=== PATIENT | female | born 1935 | race Caucasian/White ===

== ENCOUNTER 2017-03-27 17:46 | Inpatient (IN) | payer OTHER ==
--- NOTE | 2017-03-27 17:55 | EDPHY ---
H & P Time Seen by Provider: 03/27/17 17:52 HPI/ROS: CHIEF COMPLAINT: HISTORY OF PRESENT ILLNESS: This 81-year-old woman fell on March 04 of this year and fractured her right hip and had surgery to repair it in [place]. The patient then was found to have fallen on March 24 and went to the emergency department on March 25. There she had a hip dislocation reduced but was found to have an additional fracture in her fibula as well as around her hip prosthesis. The patient was transported by fixed wing aircraft with her daughter to [facility], and was accepted today by the hospitalist medicine service. She presents the emergency department with right hip pain. Further history is not obtainable because of the patient's dementia. History is obtainable from the daughter. REVIEW OF SYSTEMS: Patient complains of pain in the right hip. When I asked her what her name is she says "I am not talking to you." In further history and review of systems is not possible because the patient's lack of cooperation. It is probably also in part because of her dementia. The daughter says her mental status is at baseline and she has not had any other medical complaints lately. PAST MEDICAL HISTORY: Includes right hip fracture, glaucoma, dementia, anemia. Social history: Lives in [place], daughter lives in [place]. Nonsmoker. General Appearance: Patient is alert and eyes open spontaneously. She will respond as noted above to questions. Eyes: No scleral icterus. ENT, Mouth: Slightly dry mucous membranes. Respiratory: Normal respiratory effort, breath sounds equal, lungs are clear to auscultation. Cardiovascular: Regular rate and rhythm. Heart rate 100. Gastrointestinal: Abdomen is soft and non tender. Neurological: Alert, does follow commands, responds to questions as noted above. Speech is fluent. Face symmetric, she does have spontaneous movement in both lower extremities. Skin: Warm and dry, no rashes. Musculoskeletal: Right leg is in an abduction pillow. She has palpable dorsalis pedis pulses bilaterally. She will move both feet. Psychiatric: Not agitated. Emergency Department course/MDM: Plan for screening labs to include CBC chemistry and coags, EKG, x-ray of the right hip and lower extremity. Pain medication administered in the emergency department, see medication record for details. Discussed with Dr. Hearn who will admit, Orthopedics to consult. Discussed with Master at 1936. 1944: CT right hip per Dr. Jose Guadalupe serrato showed nondisplaced fracture near the stem of the prosthesis in the body of the femur. Constitutional: Initial Vital Signs Temperature (C) 37.3 C 03/27/17 18:10 Heart Rate 90 03/27/17 18:10 Respiratory Rate 14 03/27/17 18:10 Blood Pressure 114/61 03/27/17 18:10 O2 Sat (%) 89 L 03/27/17 18:10 O2 Delivery Mode Room Air O2 (L/minute) 4 Allergies/Adverse Reactions: No Known Allergies Allergy (Unverified 03/27/17 18:07) Home Medications: Medication Instructions Recorded Ascorbic Acid [Vitamin C 500 mg 500 mg PO BID 03/27/17 (*)] Bimatoprost [Lumigan] 1 drop EACHEYE HS 03/27/17 Brimonidine Tartrate [Alphagan P] 1 drop EACHEYE BID 03/27/17 Docusate Sodium [Colace 100 MG (*)] 100 mg PO BID 03/27/17 Dorzolamide/Timolol [Cosopt (*)] 1 drops EACHEYE BID 03/27/17 Enoxaparin [Lovenox 40 MG (*)] 40 mg SQ DAILY 03/27/17 Folic Acid [Folic Acid 1 MG (*)] 1 mg PO DAILY 03/27/17 Multivitamins [Multivitamin (*)] 1 each PO DAILY 03/27/17 Pilocarpine 1% [Isopto Carpine 1% 1 drop LEFTEYE BID 03/27/17 (*)] Quetiapine Fumarate [Quetiapine 25 mg PO BID 03/27/17 Fumarate] Urea Cream 20% Cream 1 applic TP DAILY 03/27/17 busPIRone [Buspar (*)] 5 mg PO Q12H 03/27/17 oxyCODONE HCL/ACETAMINOPHEN 1 - 2 tab PO Q6H PRN 03/27/17 [Oxycodone-Acetaminophen 5-325] Medical Decision Making - Diagnostics EKG Interpretation: 12-lead EKG interpreted by me; official reading is in trace master. My interpretation is a sinus rhythm with low frontal lead voltage. Imaging Results: Imaging Impressions Hip X-Ray 03/27/17 17:56 Impression: Right hip arthroplasty. No fracture identified. Tibia/Fibula X-Ray 03/27/17 17:56 Impression: Technically limited exam. No fracture identified. Extremity CT 03/27/17 18:57 Impression: Nondisplaced fracture lines coursing through the proximal right femur as the femoral component of the prosthesis enters the medullary space. Adjacent right hip and proximal thigh hemorrhage. No acetabular fracture identified. Results called to Dr. Arreaga. Imaging: I viewed and interpreted images myself Differential Diagnosis: Differential for right hip pain considered including but not limited to hip dislocation, periprosthetic fracture, septic joint, contusion. - Data Points Laboratory Results: Laboratory Results 03/27/17 18:01 03/27/17 18:01 03/27/17 03/27/17 03/27/17 18:11 18:01 18:01 WBC RBC Hgb Hct MCV MCH MCHC RDW Plt Count MPV Neut % (Auto) Lymph % (Auto) Greenlee % (Auto) Eos % (Auto) Baso % (Auto) Nucleat RBC Rel Count Absolute Neuts (auto) Absolute Lymphs (auto) Absolute Monos (auto) Absolute Eos (auto) Absolute Basos (auto) Absolute Nucleated RBC Immature Gran % Immature Gran # PT 14.8 SEC SEC (12.0-15.0) INR 1.16 (0.83-1.16) APTT 34.9 SEC SEC (23.0-38.0) Sodium 140 mEq/L mEq/L (134-144) Potassium 4.2 mEq/L mEq/L (3.5-5.2) Chloride 105 mEq/L mEq/L (97-110) Carbon Dioxide 26 mEq/l mEq/l (22-31) Anion Gap 9 mEq/L mEq/L (8-16) BUN 19 mg/dL mg/dL (7-23) Creatinine 0.7 mg/dL mg/dL (0.6-1.0) Estimated GFR > 60 Glucose 94 mg/dL mg/dL (70-100) Calcium 8.6 mg/dL mg/dL (8.5-10.4) Patient ABO/Rh A POSITIVE Antibody Screen NEGATIVE 03/27/17 18:01 WBC 10.53 10^3/uL H 10^3/uL (3.80-9.50) RBC 3.24 10^6/uL L 10^6/uL (4.18-5.33) Hgb 9.5 g/dL L g/dL (12.6-16.3) Hct 29.5 % L % (38.0-47.0) MCV 91.0 fL fL (81.5-99.8) MCH 29.3 pg pg (27.9-34.1) MCHC 32.2 g/dL L g/dL (32.4-36.7) RDW 14.6 % % (11.5-15.2) Plt Count 398 10^3/uL 10^3/uL (150-400) MPV 10.0 fL fL (8.7-11.7) Neut % (Auto) 65.8 % % (39.3-74.2) Lymph % (Auto) 21.6 % % (15.0-45.0) Greenlee % (Auto) 9.1 % % (4.5-13.0) Eos % (Auto) 1.8 % % (0.6-7.6) Baso % (Auto) 0.6 % % (0.3-1.7) Nucleat RBC Rel Count 0.0 % % (0.0-0.2) Absolute Neuts (auto) 6.93 10^3/uL H 10^3/uL (1.70-6.50) Absolute Lymphs (auto) 2.27 10^3/uL 10^3/uL (1.00-3.00) Absolute Monos (auto) 0.96 10^3/uL H 10^3/uL (0.30-0.80) Absolute Eos (auto) 0.19 10^3/uL 10^3/uL (0.03-0.40) Absolute Basos (auto) 0.06 10^3/uL 10^3/uL (0.02-0.10) Absolute Nucleated RBC 0.00 10^3/uL 10^3/uL (0-0.01) Immature Gran % 1.1 % % (0.0-1.1) Immature Gran # 0.12 10^3/uL H 10^3/uL (0.00-0.10) PT INR APTT Sodium Potassium Chloride Carbon Dioxide Anion Gap BUN Creatinine Estimated GFR Glucose Calcium Patient ABO/Rh Antibody Screen Medications Given: Discontinued Medications Fentanyl (Sublimaze) 100 mcg IVP ONCE ONE Stop: 03/27/17 18:16 Last Admin: 03/27/17 18:15 Dose: 100 mcg Sodium Chloride (Ns) 500 mls @ 1,500 mls/hr IV ONCE ONE Stop: 03/27/17 19:27 Last Admin: 03/27/17 20:40 Dose: 500 mls Departure - Departure Disposition: [facility] Inpatient Acute Clinical Impression: History of arthroplasty of right hip Closed right fibular fracture Qualifiers: Encounter type: initial encounter Fibula location: shaft Fracture morphology: other fracture Qualified Code(s): S82.491A - Other fracture of shaft of right fibula, initial encounter for closed fracture Soraya-prosthetic fracture of femur following total hip arthroplasty Qualifiers: Encounter type: initial encounter Qualified Code(s): M97.8XXA - Periprosthetic fracture around other internal prosthetic joint, initial encounter; Z96.649 - Presence of unspecified artificial hip joint Condition: Good
[2017-03-27] MEDS ORDERED: fentaNYL 100 MCG/2 ML INJ ONE (18:01)
[2017-03-27] MEDS ORDERED: fentaNYL 100 MCG/2 ML INJ IVP ONE (18:15)
[2017-03-27 18:17] LABS: % IMMATURE GRANULYOCYTES 1.1 % (0.0-1.1); ABSOLUTE IMMATURE GRANULOCYTES 0.12 10^3/uL (0.00-0.10); ADD DIFF? NO; ADD MORPH? NO; ADD SCAN? NO; ATYPICAL LYMPHOCYTE FLAG 20 (0-99); FRAGMENT RBC FLAG 0 (0-99); HEMATOCRIT 29.5 % (38.0-47.0); HEMOGLOBIN 9.5 g/dL (12.6-16.3); LEFT SHIFT FLG 10 (0-99); LIPEMIA HEMOLYSIS FLAG 80 (0-99); MEAN CELL HEMOGLOBIN 29.3 pg (27.9-34.1); MEAN CELL HEMOGLOBIN CONCENTR. 32.2 g/dL (32.4-36.7); PLATELET CLUMPS FLAG 10 (0-99); PLATELET COUNT 398 10^3/uL (150-400); RED BLOOD CELL COUNT 3.24 10^6/uL (4.18-5.33); RED CELL DISTRIBUTION WIDTH 14.6 % (11.5-15.2)
--- NOTE | 2017-03-27 18:24 | CPEKG ---
Heart Rate: 91 RR Interval: 659 P-R Interval: 160 QRSD Interval: 72 QT Interval: 352 QTC Interval: 434 P Partridge: 77 QRS Partridge: 52 T Wave Partridge: 76 EKG Severity - OTHERWISE NORMAL ECG - EKG Impression: SINUS RHYTHM EKG Impression: LOW VOLTAGE IN FRONTAL LEADS Electronically Signed By: Reid Arreaga 27-Mar-2017 20:18:44
[2017-03-27 18:27] LABS: INR 1.16 (0.83-1.16); PROTIME(PATIENT) 14.8 SEC (12.0-15.0)
[2017-03-27 18:28] LABS: APTT 34.9 SEC (23.0-38.0)
[2017-03-27 18:36] LABS: ANION GAP 9 mEq/L (8-16); CALCIUM 8.6 mg/dL (8.5-10.4); CARBON DIOXIDE 26 mEq/l (22-31); CHLORIDE 105 mEq/L (97-110); CREATININE 0.7 mg/dL (0.6-1.0); GLOMERULAR FILTRATION RATE > 60; GLUCOSE 94 mg/dL (70-100); POTASSIUM 4.2 mEq/L (3.5-5.2); SODIUM 140 mEq/L (134-144)
[2017-03-27] MEDS ORDERED: ONDANSETRON 4 MG/2 ML VIAL IVP PRN (19:08)
[2017-03-27] MEDS ORDERED: NS 500 ML IV ONE (19:08)
[2017-03-27] MEDS ORDERED: ACETAMINOPHEN 325 MG TAB PO PRN (19:08)
[2017-03-27] MEDS ORDERED: ONDANSETRON DISINTEGRATING 4 MG TAB PO PRN (19:08)
[2017-03-27] MEDS ORDERED: NS 1,000 ML IV SCH (19:15)
--- NOTE | 2017-03-27 20:02 | GHP ---
[f rep st] HISTORY AND PHYSICAL DATE OF ADMISSION: 03/27/2017 CHIEF COMPLAINT: Hip fracture. HISTORY OF PRESENT ILLNESS: An 81-year-old female, who was [employer]-flown from [place] by family to [facility] for evaluation of right hip. The patient had an initial fall in middle of February for which she fra ctured her right hip. She had a repair performed at that time. Since that time, the patient has be en less engaged, less mobile, less interested in thriving, was discharged to a rehabilitation facili where her daughter was visiting and found that her mother had fallen on March 24, taken to the em ergency department on the . The dislocation of her hip was reduced and she was then found to hav e an additional fracture below her prosthesis. Daughter had concerns about the care she was receivi ng at that [place] [facility] facility; therefore, Yaakov flew her back to [place], where she lives, f or evaluation. The patient is denying any shortness of breath. Denying chest pain, abdominal pain, is having excruciating pain of the right hip. Denies any nausea or vomiting. PAST MEDICAL HISTORY: 1. Glaucoma. 2. Anemia. 3. Right hip fracture. 4. Chronic anemia. 5. Traumatic brain injury with limited mobility of the left side since. SOCIAL HISTORY: Negative for tobacco, alcohol or illicit drugs. ADVANCED DIRECTIVES: The patient is Do Not Resuscitate. Her daughter would be her medical decision maker. FAMILY HISTORY: I believe, is negative for heart disease. Daughter is not positive. REVIEW OF SYSTEMS: A 10-point review of systems is negative with the exception of that reported in the HPI. PHYSICAL EXAMINATION: VITAL SIGNS: Blood pressure 114/61, heart rate 90, respiratory rate 14, 89% on room air, 99% on 4 L. GENERAL: This is a very frail-appearing, elderly female, lying flat in be d with her legs immobilized. The patient is sedated from pain medications, but answering questions. HEENT: Notable for dry mucous membranes. CARDIAC: Patient is regular rate and rhythm. A positi ve systolic murmur is appreciated. PULMONARY: Anterior auscultation of the patient is clear. GENTRY ROINTESTINAL: Positive bowel sounds. ABDOMEN: Soft and nontender. MUSCULOSKELETAL: Patient has her right leg immobilized secondary to the fracture and no lower extremity edema is appreciated. SK IN: Negative for any rashes. NEUROLOGIC: She is lethargic from pain medicines and not oriented x3 . PSYCHIATRIC: She is in pain. LABORATORY DATA: White count 10.5, hematocrit 29.5, platelets of 398. Creatinine is 0.7. Hip x-ra y, which I personally reviewed and interpreted, shows a right hip arthroplasty. No acute fracture i s appreciated. Radiology comments on diffuse osteopenia. Right tib-fib, 2 views, Radiology does not identify any fractures. EKG, which I personally reviewed and interpreted, shows sinus rhythm, normal axis, normal intervals, with no acute ST-T changes. ASSESSMENT AND PLAN: This is an 81-year-old female presenting after recent hip fracture with arthro plasty, now with fall and recurrent pain with concern for possible fracture. 1. Right hip injury. The patient had a recurrent fall in the setting of her recovery from her 1st hip fracture and arthroplasty. We will consult orthopedic surgeons for recommendations regarding ad ditional imaging, as well as any possible orthopedic interventions or stabilization. Patient is in a lot of pain. We will continue IV and p.o. pain medications p.r.n. I had an extensive talk with t he daughter, who is quite reasonable, and simply wants her mom comfortable. I think she has no disi llusions that we would be gaining increased activity, mobility, beyond where she was after her 1st h ip fracture. I have consulted Palliative Care to assist with the recommendations and information pr ovided by Orthopedic Surgery to help the daughter find appropriate placement post acute care in the hospital. 2. Glaucoma. We will continue her home drops without change. 3. Leukocytosis. We will send a urinalysis to rule out occult infection. 4. Chronic anemia. We will do not know the baselines of the patient, is presenting with a hemoglob in of 9, hematocrit of 29. 5. Mild dehydration. Suspect the patient is volume-behind, as she has had little p.o. intake in e last 4 or so days. We will give gentle IV fluid resuscitation while her p.o. intake is low. 6. Prophylaxis with Lovenox. DIET: Regular, and then n.p.o., in case there is an operative plan for the morning. DISPOSITION: Expecting greater than 2 midnights, as the patient is presenting with recurrent falls and concern for possible recurrent hip fracture requiring evaluation and disposition planning. I have discussed the case with the emergency room physician. The patient will be triaged to a medic al-surgical floor for care. /[id number]/MODL
[2017-03-27] MEDS: HYDROmorphONE/DILAUDID 1 MG/ML SYR IVP PRN (20:42)
[2017-03-27] MEDS: OXYCODONE/APAP 5/325 TAB PO PRN (20:45)
--- NOTE | 2017-03-27 21:56 | SOAPPROG ---
SOAP Progress Note Assessment/Plan: Assessment: Ester is a pleasant 81 year old female who presents with right periprosthetic femur fracture sustained during a reduction of her total hip arthroplasty while in [place]. She also sustained a left fibular shaft fracture at the time of the reduction. PE: Posterolateral incision well healed on the right hip Mild TTP overlying the lateral right fibular shaft NV intact RLE Compartments are soft Plan: 1. NWB RLE 03/27/17 21:52 03/27/17 22:16 Objective: Vital Signs Temp Pulse Resp BP Pulse Ox 36.6 C 101 H 17 123/84 H 95 03/27/17 20:00 03/27/17 20:00 03/27/17 20:00 03/27/17 20:00 03/27/17 20:00 03/26/17 03/27/17 03/28/17 05:59 05:59 05:59 Intake Total 1000 Balance 1000 PT 14.8 SEC (12.0-15.0) 03/27/17 18:01 INR 1.16 (0.83-1.16) 03/27/17 18:01 ICD10 Worksheet Patient Problems: Problems Problem Status Onset Closed right fibular fracture Acute History of arthroplasty of right hip Acute
[2017-03-27] MEDS: DOCUSATE SODIUM 100 MG CAP PO SCH (22:11)
[2017-03-27] MEDS: QUEtiapine FUMARATE 25 MG TAB PO SCH (22:12)
[2017-03-27] MEDS: ASCORBIC ACID 500 MG TAB PO SCH (22:12)
[2017-03-27] MEDS: busPIRone 5 MG TAB PO SCH (22:12)
[2017-03-27] MEDS: BIMATOPROST 0.01% 2.5 ML OPHT.BTL EACHEYE SCH (22:13)
[2017-03-27] MEDS: PILOCARPINE 1% 15 ML OPHT.BTL LEFTEYE SCH (22:13)
[2017-03-27] MEDS: DORZOLAMIDE/TIMOLOL 10 ML OPHT.BTL EACHEYE SCH (22:14)
[2017-03-27] MEDS: BRIMONIDINE 0.1% 5 ML OPHT.BTL EACHEYE SCH (22:14)
[2017-03-28] MEDS: OXYCODONE/APAP 5/325 TAB PO PRN (06:07)
[2017-03-28 06:26] LABS: % IMMATURE GRANULYOCYTES 1.3 % (0.0-1.1); ABSOLUTE IMMATURE GRANULOCYTES 0.11 10^3/uL (0.00-0.10); ADD DIFF? NO; ADD MORPH? NO; ADD SCAN? NO; ATYPICAL LYMPHOCYTE FLAG 0 (0-99); FRAGMENT RBC FLAG 0 (0-99); HEMATOCRIT 28.4 % (38.0-47.0); HEMOGLOBIN 8.9 g/dL (12.6-16.3); LEFT SHIFT FLG 10 (0-99); LIPEMIA HEMOLYSIS FLAG 80 (0-99); MEAN CELL HEMOGLOBIN 29.4 pg (27.9-34.1); MEAN CELL HEMOGLOBIN CONCENTR. 31.3 g/dL (32.4-36.7); MEAN CELL VOLUME 93.7 fL (81.5-99.8); MEAN PLATELET VOLUME 9.9 fL (8.7-11.7); PLATELET CLUMPS FLAG 10 (0-99); PLATELET COUNT 347 10^3/uL (150-400); RED BLOOD CELL COUNT 3.03 10^6/uL (4.18-5.33); RED CELL DISTRIBUTION WIDTH 14.8 % (11.5-15.2)
[2017-03-28 06:39] LABS: ANION GAP 9 mEq/L (8-16); CALCIUM 8.3 mg/dL (8.5-10.4); CARBON DIOXIDE 23 mEq/l (22-31); CHLORIDE 110 mEq/L (97-110); CREATININE 0.6 mg/dL (0.6-1.0); GLOMERULAR FILTRATION RATE > 60; GLUCOSE 77 mg/dL (70-100); POTASSIUM 3.9 mEq/L (3.5-5.2); SODIUM 142 mEq/L (134-144)
[2017-03-28 07:39] VITALS: TEMP 98.2
[2017-03-28] MEDS: busPIRone 5 MG TAB PO SCH ×2 (08:17→18:20)
[2017-03-28] MEDS: QUEtiapine FUMARATE 25 MG TAB PO SCH ×2 (08:17→20:40)
[2017-03-28] MEDS: DOCUSATE SODIUM 100 MG CAP PO SCH ×2 (08:17→20:06)
[2017-03-28] MEDS: FOLIC ACID 1 MG TAB PO SCH (08:17)
[2017-03-28] MEDS: ASCORBIC ACID 500 MG TAB PO SCH ×2 (08:17→20:07)
[2017-03-28] MEDS: ENOXAPARIN 30 MG/0.3 ML SYR SC SCH (08:21)
[2017-03-28] MEDS: DORZOLAMIDE/TIMOLOL 10 ML OPHT.BTL EACHEYE SCH ×2 (08:22→20:07)
[2017-03-28] MEDS: BRIMONIDINE 0.1% 5 ML OPHT.BTL EACHEYE SCH ×2 (08:23→20:06)
[2017-03-28] MEDS: MULTIVITAMINS 1 EACH TAB PO SCH (08:24)
[2017-03-28] MEDS: PILOCARPINE 1% 15 ML OPHT.BTL LEFTEYE SCH ×2 (08:24→20:07)
--- NOTE | 2017-03-28 11:58 | HOSPPROG ---
Hospitalist Progress Note Assessment/Plan: Patient is an 81-year-old female who was flown from the [facility] for evaluation of her right hip. She initially had a fall in February and she fractured her right hip. She had a repair performed at that time. She took another fall on March 24 and had a dislocation The dislocation of the hip was reduced and she has been found to have an additional fracture below her prosthesis. Today is my 1st encounter with the patient. Chart reviewed. * right hip fracture no further interventions ortho evaluated/ NWB CT notes a nondisplaced fx pain due to this/ scheduled Tylenol and prn oxy *left fibular shaft fx *anemia chronic *dementia *hx of TBI w limited mobility *dehydration dc fluids/ diet ordered *Plan: hospice to evaluate, family to decide further plans of IP hospice or home w hospice Subjective: Ester says she has no pain/ knows she is in the hospital. Objective: Vital Signs Temp Pulse Resp BP Pulse Ox 36.8 C 89 18 103/47 L 86 L 03/28/17 07:35 03/28/17 07:35 03/28/17 07:35 03/28/17 07:35 03/28/17 07:35 Laboratory Results 03/28/17 06:05 03/28/17 06:05 03/27/17 03/28/17 03/29/17 05:59 05:59 05:59 Intake Total 2500 Balance 2500 PT 14.8 SEC (12.0-15.0) 03/27/17 18:01 INR 1.16 (0.83-1.16) 03/27/17 18:01 - Physical Exam Constitutional: not in pain, chronically ill appearing Eyes: PERRL Ears, Nose, Mouth, Throat: hearing normal Cardiovascular: regular rate and rhythym Respiratory: no respiratory distress Gastrointestinal: normoactive bowel sounds Skin: warm Musculoskeletal: No full muscle strength Neurologic: other (alert and oriented to place and herself) Psychiatric: interacting appropriately, poor memory ICD10 Worksheet Patient Problems: Problems Problem Status Onset Closed right fibular fracture Acute History of arthroplasty of right hip Acute Soraya-prosthetic fracture of femur following total hip arthroplasty Acute
[2017-03-28] MEDS ORDERED: LACTULOSE 20 GM/30 ML UDCUP PO PRN (12:21)
[2017-03-28] MEDS ORDERED: MAGNESIUM HYDROXIDE 30 ML UDCUP PO PRN (12:21)
[2017-03-28] MEDS ORDERED: BISACODYL 10 MG SUPP PR PRN (12:21)
[2017-03-28] MEDS ORDERED: ACETAMINOPHEN 500 MG TAB ONE (12:42)
[2017-03-28] MEDS: ACETAMINOPHEN 500 MG TAB PO SCH ×2 (13:05→20:41)
[2017-03-28] MEDS: oxyCODONE IR 5 MG TAB PO PRN (14:07)
[2017-03-28] MEDS: POLYETHYLENE GLYCOL 3350 17 GM PKT PO SCH (15:05)
[2017-03-28] MEDS: HYDROmorphONE/DILAUDID 1 MG/ML SYR IVP PRN ×3 (15:10→20:44)
--- NOTE | 2017-03-28 20:02 | GCON ---
[f rep st] CONSULTATION Patient Name: ADRIÁN SILVERIO N-Number: [id number] Date of : 1935 Patient Status: Inpatient Attending Doctor: Aydee Hearn MD Consulting Doctor: Sae Olson MD Date of service: 03/27/17 CPT codes: CPT code 74873 ER visit requiring admission or initial inpatient visit, level three CPT code 98866 Closed treatment of a pertrochanteric femur fracture CPT code 13405 Closed treatment of a fibular shaft fracture Modifier 57 Decision for surgery CHIEF COMPLAINT: Right hip scar-prosthetic fracture, right fibular shaft fracture HISTORY OF PRESENT ILLNESS: This is a very pleasant 81 year old female with a significant history for recently sustaining a right femoral neck fracture and undergoing a right hip nestor-arthroplasty in [place] on 03/04/17. Following the surgery, the patients daughter reports that she was not able to ambulate unless she had significant assistance. On 03/24/17, she fell from standing and sustained a right hip dislocation. She was taken to a local ED in [place] and underwent a closed reduction. Following the closed reduction, the patient was found to have a right hip scar-prosthetic fracture and a right mid-shaft fibula fracture. The patients daughter went to visit her in [place] and then had the patient flown to [facility] to continue her care. PROBLEM LIST: Right femoral neck fracture s/p right hip nestor-arthroplasty, right hip dislocation s/p closed reduction, right femur scar-prosthetic fracture, right mid-shaft fibula fracture, dementia, TBI with limited mobility on the left site PAST MEDICAL HISTORY: Glaucoma, anemia, right femoral neck fracture s/p right hip nestor-arthroplasty, right hip dislocation s/p closed reduction, right femur scar-prosthetic fracture , right mid-shaft fibula fracture, chronic anemia, TBI with limited mobility of the left side, dementia SURGERIES: Right hip nestor-arthroplasty SOCIAL HISTORY: Non-contributory FAMILY HISTORY: Non-contributory CURRENT MEDICATIONS: Ascorbic Acid, Bimatoprost, Brimonidine Tartrate, Docusate Sodium, Dorzolamide/ Timolol, Enoxaparin, Folic Acid, Multivitamin, Pilocarpine 1%, Quetiapine Fumarate, Urea Cream 20%, Buspirone, Percocet ALLERGIES: NKDA REVIEW OF SYSTEMS Constitutional: No unexpected weight loss, weight gain, fevers, chills, or fatigue. Eyes: No blurred or double vision, no eye pain, redness or swelling. ENT: No headaches, difficulty swallowing, nose bleeds, tinnitus, or earaches. Cardiovascular: No chest pain, palpitations, fainting or murmurs. Respiratory: No shortness of breath, wheezing, cough, of difficulty breathing. GI: No reflux, no nausea or vomiting, no constipation, diarrhea, or bloody stools. Genitourinary: No urinary frequency or urgency, no pain with urination. Skin: No skin changes, rashes, itching, or redness. Neurologic: Unable to ambulate, left-sided motor deficits following TBI Psychiatric: No nervousness, anxiety, depression, or hallucinations. Dementia Hematologic: No increased bleeding or easy bruising. Endocrine: No excessive thirst or urination and no heat or cold intolerances. Allergic: No reactions to food or environment. Musculoskeletal: See history of present illness. PHYSICAL EXAM General: No apparent distress. Orientation: Not oriented to place or time Mood and affect: Calm, appropriate. Gait and station: Unable to ambulate Skin: Warm, dry. Lymph: Non tender neck, axillary and inguinal nodes. Chest: Equal expansion, no pain with deep breaths, speaks in coherent sentences. Cardiovascular: Regular pulse. Abdomen: Soft, non-tender, no masses, no palpable hernias. Bilateral hip examination Inspection/palpation: Right: Posterior hip incision nicely approximate. TTP overlying the lateral hip Left: Soft, non-tender. Range of motion Flexion: MICHELLE / 100 / 100 Extension: MICHELLE / 30 / 30 Abduction: MICHELLE / 40 / 40 Adduction: MICHELLE / 20 / 20 Internal rotation: MICHELLE / 40 / 40 External rotation: MICHELLE / 50 / 50 Strength (R / L / Normal) Muscle(s) Quadriceps (L3-L4): 3 / 3 / 5 Hamstrings (L4-L5): 3 / 3 / 5 Tibialis anterior (L4): 3 / 3 / 5 EHL (L5): 3 / 3 / 5 FHL (S1): 3 / 3 / 5 Gastroc-soleus (S1): 3 / 3 / 5 Sensory (R / L / Normal) Dermatomes L1 (groin): + / + / + L2 (medial upper thigh): + / + / + L3 (anterior thigh): + / + / + L4 (medial ankle): + / + / + L5 (first dorsal web space): + / + / + S1 (lateral border of foot): + / + / + Peripheral nerves Superficial peroneal: + / + / + Deep peroneal: + / + / + Sural: + / + / + Tibial: + / + / + Saphenous: + / + / + Vascular exm (R / L / Normal) Dorsalis pedis: 2+ / 2+ / 2+ Tibialis posterior: 2+ / 2+ / 2+ Bilateral knee examination Inspection/palpation: Right: TTP overlying the right mid-shaft fibula Left: Soft, non-tender. Range of motion Extension-Flexion: MICHELLE / 0-130 / 0-150 Medical decision making Data Imaging study: right hip CT scan Action: interpreted Interpretation / pertinent findings: stable, non-displaced right proximal femur scar-prosthetic fracture ([place] A) Imaging Study: right tibia and fibula radiographs, three views Action: interpreted Interpretation / pertinent findings: right mid-shaft fibula fracture, non- displaced Diagnoses New diagnosis: right femur non-displaced scar-prosthetic fracture ([place] A) Work-up planned: yes: see assessment and plan New diagnosis: right mid-shaft fibula fracture, non-displaced Work-up planned: yes: see assessment and plan Assessment and plan This is a 81 year old female with right proximal femur scar-prosthetic fracture ([place] A) and a non-displaced right mid-shaft fibula fracture. -Recommend supportive care including ambulation with assistance with posterior hip precautions -FFWB on RLE with full assist and posterior hip precautions (this may be difficult to achieve due to patients cognition if so, recommend NWB on RLE) -Abductor wedge in place full-time when in bed -Knee immobilizer in place full-time when out of bed Time I have spent 80 minutes of aigm-wt-dumb time with the patient during this visit. Over fifty percent of this time was spent counseling the patient on the risks, benefits, alternatives, and complications of both non-operative and operative forms of treatment as outlined above. /[id number]/MODL MTDD
[2017-03-28] MEDS: BIMATOPROST 0.01% 2.5 ML OPHT.BTL EACHEYE SCH (20:06)
[2017-03-28] MEDS: SENNOSIDES 17.6 MG/10 ML UDL PO SCH (20:07)
[2017-03-28 23:16] VITALS: BP 127/82; RESP 16
[2017-03-29] MEDS: HYDROmorphONE/DILAUDID 1 MG/ML SYR IVP PRN ×3 (00:18→05:51)
[2017-03-29 07:55] VITALS: PULSE 95; O2SAT 91
[2017-03-29] MEDS: SENNOSIDES 17.6 MG/10 ML UDL PO SCH (08:00)
[2017-03-29] MEDS: POLYETHYLENE GLYCOL 3350 17 GM PKT PO SCH (08:00)
[2017-03-29] MEDS: busPIRone 5 MG TAB PO SCH (08:06)
[2017-03-29] MEDS: QUEtiapine FUMARATE 25 MG TAB PO SCH (08:06)
[2017-03-29] MEDS: ACETAMINOPHEN 500 MG TAB PO SCH (08:06)
[2017-03-29] MEDS: oxyCODONE IR 5 MG TAB PO PRN ×2 (08:07→11:51)
[2017-03-29] MEDS: BRIMONIDINE 0.1% 5 ML OPHT.BTL EACHEYE SCH (08:18)
[2017-03-29] MEDS: DORZOLAMIDE/TIMOLOL 10 ML OPHT.BTL EACHEYE SCH (08:18)
[2017-03-29] MEDS: ASCORBIC ACID 500 MG TAB PO SCH (08:18)
[2017-03-29] MEDS: DOCUSATE SODIUM 100 MG CAP PO SCH (08:18)
[2017-03-29] MEDS: PILOCARPINE 1% 15 ML OPHT.BTL LEFTEYE SCH (08:19)
[2017-03-29] MEDS: MULTIVITAMINS 1 EACH TAB PO SCH (08:19)
[2017-03-29] MEDS: ENOXAPARIN 30 MG/0.3 ML SYR SC SCH (08:19)
[2017-03-29] MEDS: FOLIC ACID 1 MG TAB PO SCH (08:19)
--- NOTE | 2017-03-29 12:04 | HOSPPROG ---
Hospitalist Progress Note Assessment/Plan: Patient is an 81-year-old female who was flown from the [facility] for evaluation of her right hip. She initially had a fall in February and she fractured her right hip. She had a repair performed at that time. She took another fall on March 24 and had a dislocation The dislocation of the hip was reduced and she has been found to have an additional fracture below her prosthesis. * right hip fracture no further interventions ortho evaluated/ NWB CT notes a nondisplaced fx pain due to this/ scheduled Tylenol and prn oxy/ Roxinal *left fibular shaft fx *anemia chronic *dementia *hx of TBI w limited mobility *dehydration dc fluids/ diet ordered *Plan: hospice Subjective: Ester is c/o pain to her head. Objective: Vital Signs Temp Pulse Resp BP Pulse Ox 36.8 C 95 16 127/82 H 91 L 03/28/17 07:35 03/29/17 07:53 03/28/17 22:00 03/28/17 22:00 03/29/17 07:53 Laboratory Results 03/28/17 06:05 03/28/17 06:05 03/28/17 03/29/17 03/30/17 05:59 05:59 05:59 Intake Total 2500 550 Balance 2500 550 PT 14.8 SEC (12.0-15.0) 03/27/17 18:01 INR 1.16 (0.83-1.16) 03/27/17 18:01 - Physical Exam Constitutional: uncomfortable, No not in pain Eyes: PERRL Ears, Nose, Mouth, Throat: hearing normal Skin: warm Neurologic: other (confused) Psychiatric: anxious ICD10 Worksheet Patient Problems: Problems Problem Status Onset Closed right fibular fracture Acute History of arthroplasty of right hip Acute Soraya-prosthetic fracture of femur following total hip arthroplasty Acute
[2017-03-29] MEDS: morphINE 10 MG/0.5 ML UDSYR PO PRN ×2 (12:16→14:29)
[2017-03-29] MEDS ORDERED: LORazepam 1 MG/0.5 ML UDSYR PO PRN (12:38)
--- NOTE | 2017-03-29 12:52 | PDIAF ---
- Diagnosis Diagnosis: right hip fracture Code Status: Do Not Resuscitate - Medication Management Discharge Medications: Medications to Continue on Transfer Ascorbic Acid [Vitamin C 500 mg (*)] 500 mg PO BID 03/27/17 [Last Taken Unknown] Bimatoprost [Lumigan] 1 drop EACHEYE HS 03/27/17 [Last Taken Unknown] Brimonidine Tartrate [Alphagan P] 1 drop EACHEYE BID 03/27/17 [Last Taken Unknown] Docusate Sodium [Colace 100 MG (*)] 100 mg PO BID 03/27/17 [Last Taken Unknown] Dorzolamide/Timolol [Cosopt (*)] 1 drops EACHEYE BID 03/27/17 [Last Taken Unknown] Enoxaparin [Lovenox 40 MG (*)] 40 mg SQ DAILY 03/27/17 [Last Taken 03/27/17] Folic Acid [Folic Acid 1 MG (*)] 1 mg PO DAILY 03/27/17 [Last Taken Unknown] Multivitamins [Multivitamin (*)] 1 each PO DAILY 03/27/17 [Last Taken Unknown] Pilocarpine 1% [Isopto Carpine 1% (*)] 1 drop LEFTEYE BID 03/27/17 [Last Taken Unknown] Quetiapine Fumarate 25 mg PO BID 03/27/17 [Last Taken Unknown] Urea Cream 20% Cream 1 applic TP DAILY 03/27/17 [Last Taken Unknown] busPIRone [Buspar (*)] 5 mg PO Q12H 03/27/17 [Last Taken Unknown] Acetaminophen [Tylenol ES 500 mg (*)] 1,000 mg PO TID tab 03/29/17 [Last Taken Unknown] LORazepam [Ativan] 0.5 mg PO Q4 PRN #20 tablet 03/29/17 [Last Taken Unknown] Ondansetron Odt [Zofran Odt 4 mg (*)] 4 mg PO Q4HRS PRN #0 tab 03/29/17 [Last Taken Unknown] Polyethylene Glycol 3350 [Miralax 17 gm (*)] 17 gm PO DAILY pkt 03/29/17 [Last Taken Unknown] morphINE [Roxanol 10 mg/0.5 ml oral soln (*)] 0 mg PO Q2 #10 ml 03/29/17 [Last Taken Unknown] oxyCODONE IR [Oxycodone Ir (*)] 5 mg PO Q4HRS PRN #0 tab 03/29/17 [Last Taken Unknown] Discharge Medications: Refer to the Discharge Home Medication list for PRN reason. - Orders Diet Recommendation: no restrictions on diet Diet Texture: Regular Texture Diet, Thin Liquids, Meds Whole in Puree Activity/Weight Bearing Restrictions: supportive care per hospice. FFWB on RLE with full assist and posterior hip precautions. If difficult to do this, recommending NWB on RLE. Abductor pillow in place when in bed. Knee immobilizer in place full-time when out of bed. Additional: Care per hospice/ continued home medications, but these can be decided further. - Follow Up Care Current Providers and Referrals: Patient,NotPresent [Unknown] - As per Instructions
--- NOTE | 2017-03-29 13:59 | GDS ---
[f rep st] DISCHARGE SUMMARY DISCHARGE DIAGNOSES: 1. Right femur nondisplaced periprosthetic fracture. 2. Right midshaft fibula fracture. 3. Anemia. 4. Dementia. 5. History of traumatic brain injury with limited mobility. 6. Dehydration. CONSULTATIONS: Dr. Sae Olson with orthopedic services. Briefly, the patient is an 81-year-old female who was flown from the [place] area to be evaluated here at [facility]. Her history includes having a right femoral neck fracture and underwent a right hip hemiarthroplasty in [place] on March 04. Following the surgery, the patient reports that she was not able to ambulate unless she had significant assistance. Then on March 24, she fell from standing and sustained a right hip dislocation. She was taken to the ED in [place] and underwent a closed reduction. Following the reduction, she was found to have a right hip periprosthetic fracture and a right midshaft fibula fracture. The daughter went to visit her in [place] and had her flown to [facility] for further care. After further evaluation and discussion with the family, they have opted for the patient to go to hospice. The plan is for her to go to hospice with supportive care. HOSPITAL COURSE: 1. Right femur nondisplaced periprosthetic fracture. She had a CT scan that confirmed this. She will be on comfort measures. 2. Right midshaft fibula fracture, nondisplaced. 3. Anemia. This is chronic. 4. Dementia, worse with the narcotics. 5. History of total brain injury with limited mobility. This is affecting all of the above. 6. Dehydration, resolved. Pending labs and tests: None. CONDITION ON DISCHARGE: Stable. Blood pressure is 127/82. O2 sat on 1 L 91%. Respiratory rate is 16. Pulse is 95. Temperature is 36.8 Celsius. MEDICATIONS ON DISCHARGE: Please see the EMR. Hospice can decide on which home medications to continue. DISCHARGE INSTRUCTIONS: Care per Hospice. Greater than 30 minutes discharging and coordinating care. /[id number]/MODL MTDD
== END 2017-03-29 14:58 | disposition hospice, home (50) | DRG 561 ==
LOC: F3N 20:02
PROVIDERS: ADMIT Hospitalist; ATTEND Internal Medicine
DX: M97.01XA Periprosthetic fracture around internal prosthetic right hip joint, initial encounter (principal); S82.401A Unspecified fracture of shaft of right fibula, initial encounter for closed fracture; F03.90 Unspecified dementia, unspecified severity, without behavioral disturbance, psychotic disturbance, mood disturbance, and anxiety; E86.0 Dehydration; W19.XXXA Unspecified fall, initial encounter; Z66 Do not resuscitate; Z51.5 Encounter for palliative care; Z87.820 Personal history of traumatic brain injury
CPT/HCPCS: 92610-GN; 96374; G8996-GN-CH; G8997-GN-CH; G8998-GN-CH; J1170; J1650; J3010